=== PATIENT | female | born 1950 | race African-American/Black ===

== ENCOUNTER 2017-07-31 13:56 | Emergency (ER) | payer OTHER ==
[~2017-07-31] VITALS: Ht 157.5 cm; Wt 70.3 kg
[~2017-07-31 13:56] MED LIST: ASPIR 8181 MG PO; BENADRYL25 MG PO; CRESTOR20 MG PO; EPIPEN 2-P0.3 MG/0.3 IM; FLONASE 0.05%50 MCG NASAL; NAPROSYN250 MG PO; NEXIUM10 MG PO; NORCO 5-325 TA1 EACH PO; PREDNISONE50 MG PO
[2017-07-31 14:04] VITALS: BP 139/89
[2017-07-31] MEDS ORDERED: PRILOSEC 20 MG20 MG PO (14:18)
== END 2017-07-31 14:33 | disposition home or self-care (01) ==
LOC: ER 13:56
DX: K29.00 Acute gastritis without bleeding (principal); K21.9 Gastro-esophageal reflux disease without esophagitis; E78.5 Hyperlipidemia, unspecified

== ENCOUNTER 2020-04-18 11:48 | Emergency (ER) | payer OTHER ==
[~2020-04-18] VITALS: Ht 157.5 cm; Wt 68.0 kg
[~2020-04-18 11:48] MED LIST changes: +PRILOSEC 20 MG20 MG PO
[2020-04-18 13:11] VITALS: BP 143/82
[2020-04-18] MEDS ORDERED: ULTRAM 50MG TAB50 MG PO (13:16)
== END 2020-04-18 13:55 | disposition home or self-care (01) ==
LOC: ER 11:48
DX: B02.9 Zoster without complications (principal); K21.9 Gastro-esophageal reflux disease without esophagitis; E78.5 Hyperlipidemia, unspecified; Z79.82 Long term (current) use of aspirin; Z79.899 Other long term (current) drug therapy; Z88.0 Allergy status to penicillin; Z88.2 Allergy status to sulfonamides